=== PATIENT | female | born 1965 | race Caucasian/White ===

== ENCOUNTER → 2023-03-23 | Outpatient (CLI) | payer BC ==
--- NOTE | 2023-03-23 14:06 | XR ---
EXAMINATION TYPE: XR ribs LT w pa chest xray, 5 views DATE OF EXAM: 03/23/2023 Comparison: 02/26/2014 Clinical History: 58-year-old female [id number] LT RIB INJURY Findings: Heart normal size. Aorta and pulmonary vasculature within normal limits. Blunting of the left costoph renic angle suggesting trace pleural effusion. No consolidation or pneumothorax seen. Slight step-off along the left anterolateral fifth rib. Suspect additional subtle fractures of the le ft anterolateral sixth and seventh ribs. Impression: 1. Suspect nondisplaced fractures of the left anterolateral fifth, sixth, and seventh ribs. 2. Adjacent trace left pleural effusion.
== END | disposition home or self-care (01) ==
LOC: RADXRYALE 10:36
PROVIDERS: ATTEND Nurse Practitioner Family
DX: J90 Pleural effusion, not elsewhere classified (principal); R07.82 Intercostal pain